=== PATIENT | male | born 1955 | race Caucasian/White ===

== ENCOUNTER 2022-02-28 08:42 | Emergency (ER) | payer OTHER ==
[~2022-02-28] VITALS: Ht 177.8 cm; Wt 88.5 kg
--- NOTE | 2022-02-28 09:15 | NUR ---
TECH AT BEDSIDE FOR EKG
--- NOTE | 2022-02-28 09:20 | NUR ---
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
[2022-02-28 09:47] LABS: BASOPHILS # (AUTO) 0.1 K/uL (0.0-0.2); BASOPHILS % (AUTO) 1.2 % (0.0-2.0); EOSINOPHILS % (AUTO) 3.8 % (0.0-6.0); HEMATOCRIT 50 % (39-51); HEMOGLOBIN 16.6 g/dL (13.5-17.5); LYMPHOCYTES # (AUTO) 1.6 K/uL (0.8-4.8); MEAN CORPUSCULAR HGB CONC 33 g/dl (31.0-36.0); MEAN CORPUSCULAR VOLUME 90 fL (80-96); MONOCYTES # (AUTO) 0.6 K/uL (0.1-1.30); MONOCYTES % (AUTO) 6.6 % (2.0-12.0); NEUTROPHILS # (AUTO) 6.4 K/uL (1.8-8.9); NEUTROPHILS % (AUTO) 70.4 % (43.0-81.0); PLATELET COUNT (AUTO) 223 K/uL (150-450); RED BLOOD CELL COUNT(AUTO) 5.56 MIL/uL (4.5-6.0); WHITE BLOOD COUNT (AUTO) 9.1 K/uL (4.3-11.0)
[2022-02-28 10:00] LABS: CALCIUM, SERUM 8.9 mg/dL (8.5-10.1); CARBON DIOXIDE 25 mmol/L (21-32); CHLORIDE 106 mmol/L (98-107); CREATININE 1.3 mg/dL (0.6-1.3); GLUCOSE 103 mg/dL (74-106); POTASSIUM 4.4 mmol/L (3.5-5.1); SODIUM SERUM 136 mmol/L (136-145); UREA NITROGEN, BLOOD 33 mg/dL (7-18)
[2022-02-28 10:03] LABS: BILIRUBIN,URINE NEGATIVE (NEGATIVE); COLOR,URINE YELLOW (YELLOW); LEUKOCYTE ESTERASE ,URINE NEGATIVE (NEGATIVE); NITRITE, URINE NEGATIVE (NEGATIVE); PROTEIN,URINE NEGATIVE (NEGATIVE); UGLUCOSE NEGATIVE (NEGATIVE); UROBILINOGEN,URINE 0.2 EU/dL (0.2)
[2022-02-28 10:13] LABS: ALANINE AMINOTRANSFERASE 24 U/L (12-78); ALBUMIN 3.5 g/dL (3.4-5.0); ALCOHOL, BLOOD < 3 mg/dL (0-0); ALKALINE PHOSPHATASE 74 U/L (46-116); ASPARTATE AMINOTRANSFERASE 20 U/L (15-37); BILIRUBIN,DIRECT 0.1 mg/dL (0.0-0.2); BILIRUBIN,TOTAL 0.7 mg/dL (0.2-1.0); TOTAL PROTEIN, SERUM 7.3 g/dL (6.4-8.2)
[2022-02-28 10:32] LABS: ACETAMINOPHEN 0 ug/ml (10-30)
--- NOTE | 2022-02-28 13:40 | NUR ---
CLINICALS FAXED TO [facility].
--- NOTE | 2022-02-28 14:44 | NUR ---
CALLED [facility] INTAKE, AWAITING PHYSICIAN AND INSURANCE CLEARANCE.
--- NOTE | 2022-02-28 15:47 | NUR ---
LATE LUNCH TRAY PROVIDED TO PTJOSEPH
--- NOTE | 2022-02-28 16:46 | NUR ---
FOLLOWED UP WITH [facility]. PT IS MEDICALLY ACCEPTED, STILL WAITING ON INSURANCE.
--- NOTE | 2022-03-01 01:00 | NUR ---
SO RENÉE INTAKE CALLED, NO UPDATE
[2022-03-01 08:00] VITALS: BP 135/65
--- NOTE | 2022-03-01 08:00 | NUR ---
assume patient care, resting in bed. vss. denies chest pain or any discomfort. will continue to monitor.
--- NOTE | 2022-03-01 10:08 | NUR ---
[facility] [place] [phone]
--- NOTE | 2022-03-01 10:21 | NUR ---
accepted at [address] Phelan report [phone]
--- NOTE | 2022-03-01 11:00 | NUR ---
[facility].
== END 2022-03-01 11:30 ==
LOC: ER 08:44
DX: R00.2 Palpitations (principal); R45.851 Suicidal ideations; Z59.00 Homelessness unspecified; Z20.822 Contact with and (suspected) exposure to COVID-19
CPT/HCPCS: 36415; 71045-TC; 80048-TC; 80076-TC; 83880; 84484-TC; 85025-TC; C9803; G0480